=== PATIENT | male | born 2000 | race Caucasian/White ===

== ENCOUNTER 2024-08-10 15:00 | Emergency (ER) | payer SELFPAY ==
[2024-08-10 15:24] VITALS: BP 141/87
--- NOTE | 2024-08-10 16:11 | ED.GENMED ---
History of Present Illness
General
Chief Complaint: Skin Surface Trauma
Time Seen by Provider: 08/10/24 15:33
History of Present Illness
History of Present Illness:
24-year-old male presents the emergency department for evaluation of a laceration to the right side of the face sustained at work today when he threw a 2 x 4 and it kicked back and struck him in the head with a nail. There is a 5 cm linear
laceration to the right side of the face just anterior and superior to the right ear. Tetanus status is up-to-date
Review of Systems
Review of Systems
Allergies reviewed?: Yes
All Other Systems: ROS reviewed and negative except as documented in HPI and ROS
Phy Exam
Physical Exam
Physical Exam:
GEN: Well appearing, NAD, WDWN
HEENT: Oral mucosa moist, no scleral icterus. 5 cm linear laceration to the right zygoma extending toward the superior aspect of the ear. Sensation intact to the facial nerve and trigeminal nerve distributions, facial nerve motor function is intact
Cardiac: Regular rate
Lung: No respiratory distress, no tachypnea
MSK: No gross deformity or injuries
Skin: Good color, no pallor or jaundice, no rashes
Neuro: AO x3, moves all extremities freely
Psych: Calm, cooperative
Course
Vital Signs
Initial and Last Documented VS:
Initial Vital Signs
Temp Pulse Resp BP Pulse Ox
98.7 F 67 18 141/87 99
08/10/24 15:24 08/10/24 15:24 08/10/24 15:24 08/10/24 15:24 08/10/24 15:24
Last Documented Vital Signs
Temp Pulse Resp BP Pulse Ox
98.7 F 67 18 141/87 99
08/10/24 15:24 08/10/24 15:24 08/10/24 15:24 08/10/24 15:24 08/10/24 15:24
Procedures
Laceration Closure
Right face:
Status of Wound: clean
Size of Wound in cm: 5
Description of Wound Edges: sharp
Preparation: cleaned with saline
Anesthesia: 1% Lidocaine with epi
Wound exploration: explored to base- no FB
Type of Closure: single layer closure
Skin Closure Material: 5-0 nylon
Number of sutures: 5
MDM/Problems Addressed
MDM/Problems Addressed:
No evidence for facial nerve injury, wound cleaned and sutured with external sutures
*Critical Care Note
Total Time (30-74mins, 75-104mins- exclusive of procedures): Not Applicable
ED Attending Note
-
Portions of this chart may have been created with voice recognition software.� Occasional wrong word or��sound alike� substitutions may have occurred due to the inherent limitations of voice recognition software.
Discharge Plan
Departure
Patient Disposition: Home (Routine Discharge)
Date of Disposition: 08/10/24
Time of Disposition: 16:11
Patient with high blood pressure during this ER visit?: No
Discharge Problem:
Face lacerations
Instructions: Laceration Repair With Stitches (DC)
Activity Restrictions/Additional Instructions:
Keep dry for 24 hours then gentle soap and water washing each day
Suture removal in 7-10 days
Interventions
Interventions:
*Risk Screen - Suicide Last Done: 08/10/24 15:24
*General Assessment Last Done: 08/10/24 15:46
*Neglect/Abuse Screening Last Done: 08/10/24 15:24
*ED COVID-19 Vaccine History Last Done: 08/10/24 15:46
*Nursing Disposition Last Done: 08/10/24 16:19
ED-Skin Assessment Last Done: 08/10/24 15:46
Discharge Date and Time
Discharge Date/Time: 08/10/24 16:19
Print Language: JORDANIAN
== END 2024-08-10 16:19 | disposition home or self-care (01) ==
LOC: EMR 15:00
PROVIDERS: EMERGENCY PHYSICIAN Student in an Organized Health Care Education/Training Program
DX: S01.81XA Laceration without foreign body of other part of head, initial encounter (principal); W22.8XXA Striking against or struck by other objects, initial encounter; Y99.0 Civilian activity done for income or pay
CPT/HCPCS: 99282; 12013